=== PATIENT | female | born 1980 | race Two or more races ===

== ENCOUNTER 2023-08-07 08:30 | Inpatient (IN) | payer OTHER ==
[~2023-08-07] VITALS: Ht 157.5 cm; Wt 79.8 kg
[2023-08-07] MEDS ORDERED: AMLODIPINE BESYL5 MG PO (09:46)
[2023-08-07] MEDS ORDERED: COZAAR100 MG PO (09:46)
[2023-08-07] MEDS ORDERED: CLONAZEPAM0.5 MG PO (09:47)
[2023-08-10 19:21] LABS: HEMATOCRIT 37.6 % (36.0-45.00); HEMOGLOBIN 12.4 g/dL (12.0-15.00); MEAN CORPUSCULAR HEMOGLOBIN 30.3 pg (27.00-32.0); PLATELET COUNT 475 K/uL (150-450); RED BLOOD COUNT 4.09 M/uL (4.00-6.00); RED CELL DISTRIBUTION WIDTH 14.3 % (11.5-14.5)
[2023-08-12] MEDS ORDERED: GABAPENTIN300 MG PO (06:24)
[2023-08-12] MEDS ORDERED: IBUPROFEN800 MG PO (06:24)
[2023-08-12] MEDS ORDERED: SIMETHICONE125 M1 PO (06:24)
[2023-08-12] MEDS ORDERED: POLY119PG PO (06:24)
== END 2023-08-12 09:38 | disposition home or self-care (01) | DRG 743 ==
LOC: OB/GYN 08-10 05:30 → O/R 08-10 05:30 → OB/GYN 08-10 08:30
PROVIDERS: ADMIT Obstetrics & Gynecology; ATTEND Obstetrics & Gynecology
PROC: 0DNE0ZZ Release Large Intestine, Open Approach (ICD-10-PCS; 2023-08-10)
PROC: 0UT90ZZ Resection of Uterus, Open Approach (ICD-10-PCS; principal; 2023-08-10 11:00)
DX: D25.2 Subserosal leiomyoma of uterus (principal); N72 Inflammatory disease of cervix uteri; Z20.822 Contact with and (suspected) exposure to COVID-19; N73.6 Female pelvic peritoneal adhesions (postinfective)